=== PATIENT | male | born 1965 | race Caucasian/White ===

== ENCOUNTER 2017-10-06 22:34 | Emergency (ER) | payer OTHER ==
[~2017-10-06] VITALS: Ht 170.2 cm; Wt 65.8 kg
[2017-10-06] MEDS ORDERED: COZAAR50 MG (22:55)
[2017-10-06] MEDS ORDERED: CRESTOR5 MG (22:55)
[2017-10-07] MEDS ORDERED: DOLOGESIC 500-1 EACH PO (03:52)
== END 2017-10-07 03:53 ==
LOC: ER 22:34
DX: R51 Headache (principal); M54.2 Cervicalgia

== ENCOUNTER 2022-05-27 08:47 | Emergency (ER) | payer OTHER ==
[~2022-05-27] VITALS: Ht 170.2 cm; Wt 71.7 kg
[~2022-05-27 08:47] MED LIST: COZAAR50 MG; CRESTOR5 MG; DOLOGESIC 500-1 EACH PO
[2022-05-27] MEDS ORDERED: TOPROL XL25 M1 PO (09:07)
[2022-05-27] MEDS ORDERED: INTESTINEX680 M1 PO (18:48)
[2022-05-27] MEDS ORDERED: PEPCID AC20 MG PO (18:48)
[2022-05-27] MEDS ORDERED: METRONIDAZOLE500 MG PO (18:48)
== END 2022-05-27 19:19 | disposition home or self-care (01) ==
LOC: ER 08:47
DX: K52.9 Noninfective gastroenteritis and colitis, unspecified (principal); Z20.828 Contact with and (suspected) exposure to other viral communicable diseases

== ENCOUNTER 2024-07-26 20:01 | Emergency (ER) | payer OTHER ==
[~2024-07-26] VITALS: Ht 170.2 cm; Wt 68.9 kg
[~2024-07-26 20:01] MED LIST changes: +INTESTINEX680 M1 PO; +METRONIDAZOLE500 MG PO; +PEPCID AC20 MG PO; +TOPROL XL25 M1 PO
[2024-07-26] MEDS ORDERED: 0.9 % SODIUM CHLORIDE 1,000 ML IV STA (22:33)
[2024-07-26] MEDS ORDERED: MORPHINE SULFATE 2 MG/ML SYRINGE IV ONE (22:45)
[2024-07-26 23:27] LABS: HEMATOCRIT 39.8 % (39.0-48.0); HEMOGLOBIN 13.7 g/dL (13-16.00); MEAN CELL VOLUME 85.4 fL (80.0-100.00); MEAN CORPUSCULAR HEMOGLOBIN 29.4 pg (27.00-32.0); MEAN CORPUSCULAR HGB CONC 34.4 g/dl (32.0-36.0); RED BLOOD COUNT 4.66 M/uL (4.00-6.00)
[2024-07-26 23:34] LABS: INR 1.21; PARTIAL THROMBOPLASTIN TIME 28.3 SECONDS (22.0-34.0)
[2024-07-26 23:38] LABS: PLATELET COUNT 116 K/uL (150-450)
[2024-07-26 23:42] LABS: ALBUMIN 3.8 gm/dL (3.4-5.0); BILIRUBIN TOTAL 0.49 mg/dL (0.3-1.2); CALCIUM 8.8 mg/dL (8.5-10.1); CREATININE SERUM 1.12 mg/dL (0.70-1.30); GFR 67.82; GLOBULINA 3.7 G/DL (2.4-3.5); POTASSIUM 3.85 mEq/L (3.5-5.1); TOTAL PROTEIN 7.5 gm/dL (6.4-8.2)
[2024-07-27 01:52] LABS: URINE APPEARANCE Clear; URINE BILIRRUBIN Negative (NEGATIVE); URINE BLOOD Small; URINE COLOR Yellow; URINE GLUCOSE Negative (NEGATIVE); URINE KETONE 15 (NEGATIVE); URINE LEUKOCYTE Negative; URINE NITRATE Negative; URINE PROTEIN Negative (NEGATIVE); URINE UROBILINOGEN 0.2 E.U./dl
[2024-07-27 01:56] LABS: URINE EPITHELIAL CELLS 2.6 uL (0.0-38.8); URINE RBC 51.5 uL (0.0-20.8)
[2024-07-27 02:01] LABS: URINE WBC 0.6 uL (0.0-23.2)
[2024-07-27] MEDS ORDERED: KETOROLAC TROMETHAMINE 30 MG VIAL IV STA (04:07)
[2024-07-27] MEDS ORDERED: HYOSCYAMINE SULFATE 0.125 MG TAB.SUBL SL ONE (04:15)
[2024-07-28] MEDS ORDERED: METRONIDAZOLE500 MG PO (18:13)
== END 2024-07-27 04:29 | disposition home or self-care (01) ==
LOC: ER 20:03
PROVIDERS: Emergency Medicine
DX: K52.89 Other specified noninfective gastroenteritis and colitis (principal); R10.9 Unspecified abdominal pain
CPT/HCPCS: 36415; 74177; 96365; 96366; 99284; J1885; J2270; J7030; Q9965

== ENCOUNTER 2024-07-28 11:30 | Emergency (ER) | payer OTHER ==
[~2024-07-28] VITALS: Ht 170.2 cm; Wt 70.3 kg
[2024-07-28] MEDS ORDERED: 0.9 % SODIUM CHLORIDE 1,000 ML IV ONE (12:45)
[2024-07-28] MEDS ORDERED: LOPERAMIDE HCL 2 MG CAPSULE PO ONE (12:45)
[2024-07-28] MEDS ORDERED: FAMOtidine 10 MG/ML (4ML VIAL) IV ONE (12:45)
[2024-07-28 13:50] LABS: HEMOGLOBIN 13.3 g/dL (13-16.00); MEAN CELL VOLUME 84.8 fL (80.0-100.00); MEAN CORPUSCULAR HEMOGLOBIN 29.8 pg (27.00-32.0); MEAN CORPUSCULAR HGB CONC 35.1 g/dl (32.0-36.0); RED BLOOD COUNT 4.48 M/uL (4.00-6.00); RED CELL DISTRIBUTION WIDTH 12.9 % (11.5-14.5)
[2024-07-28 14:04] LABS: ALBUMIN 3.7 gm/dL (3.4-5.0); BILIRUBIN TOTAL 0.28 mg/dL (0.3-1.2); CALCIUM 8.7 mg/dL (8.5-10.1); CREATININE SERUM 0.94 mg/dL (0.70-1.30); GFR 83.02; GLOBULINA 3.6 G/DL (2.4-3.5); POTASSIUM 3.99 mEq/L (3.5-5.1); TOTAL PROTEIN 7.3 gm/dL (6.4-8.2)
[2024-07-28 14:26] LABS: PH,URINE 6.5 (5.0-8.0); URINE APPEARANCE Clear; URINE BILIRRUBIN Negative (NEGATIVE); URINE BLOOD Small; URINE COLOR Yellow; URINE GLUCOSE Negative (NEGATIVE); URINE KETONE Negative (NEGATIVE); URINE LEUKOCYTE Negative; URINE NITRATE Negative; URINE PROTEIN Negative (NEGATIVE); URINE UROBILINOGEN 0.2 E.U./dl
[2024-07-28 14:28] LABS: URINE BACTERIA 6.2 uL (0.0-1933); URINE RBC 29.1 uL (0.0-20.8)
[2024-07-28 14:42] LABS: URINE EPITHELIAL CELLS 1.2 uL (0.0-38.8); URINE WBC 1.3 uL (0.0-23.2)
[2024-07-28 14:47] LABS: PLATELET COUNT 117 K/uL (150-450)
[2024-07-28] MEDS ORDERED: METRONIDAZOLE500 MG PO (18:13)
== END 2024-07-28 18:18 | disposition home or self-care (01) ==
LOC: ER 11:32
PROVIDERS: General Practice
DX: A90 Dengue fever [classical dengue] (principal); R19.7 Diarrhea, unspecified; I10 Essential (primary) hypertension